=== PATIENT | male | born 1975 | race Caucasian/White ===

== ENCOUNTER 2025-09-01 20:07 | Inpatient (IN) | payer SELFPAY ==
[~2025-09-01] VITALS: Ht 175.3 cm; Wt 114.8 kg
[2025-09-01] MEDS: NALOXONE HCL 1MG/ML 2ML VIAL IV ONE (21:43)
[2025-09-01] MEDS: ONDANSETRON HCL 4MG/2ML INJ IV ONE (21:48)
[2025-09-01] MEDS: FAMOTIDINE 20MG/2ML VIAL IV ONE (21:49)
[2025-09-01 21:58] VITALS: PULSE 115; RESP 36; O2SAT 98
[2025-09-01] MEDS: SODIUM CHLORIDE 0.9% 1,000 ML IV ONE (22:07)
[2025-09-01] MEDS: ETOMIDATE 2MG/ML 10ML VIAL IV ONE (22:38)
[2025-09-01] MEDS: ROCURONIUM BROMIDE 10MG/ML VIAL 5ML IV ONE (22:39)
[2025-09-01 23:05] LABS: BG BASE EXCESS -24.3 mmol/L (-2.0-3.0); BG CARBOXYHEMOGLOBIN 0.2 % (0.5-1.5); BG DEOXYHEMOGLOBIN 0.3 % (0.0-5.0); BG FRACTION INSPIRED OXYGEN 100; BG HCO3 ACT 4.6 mmol/L (21.0-28.0); BG METHEMOGLOBIN 0.6 % (0.5-1.5); BG OXYGEN SATURATION 99.7 % (94.0-98.0); BG OXYHEMOGLOBIN 98.9 % (94.0-98.0); BG PCO2 18.3 mmHg (35.0-48.0); BG PEEP (cmH2O) 5.0 cmH2O; BG PH 7.020 (7.350-7.450); BG PO2 396.6 mmHg (83.0-108.0); BG SAMPLE SITE LEFT RADIAL; BG TIDAL VOLUME(mL) 550.0 mL; BG TOTAL HEMOGLOBIN 21.9 g/dL (13.5-17.5); BG VENT MODE VENT - AC; BG VENT RATE 30.0 set
[2025-09-01] MEDS: PROPOFOL 10MG/ML 100ML 100 ML IV SCH (23:16)
[2025-09-01 23:39] LABS: HEMOGLOBIN. 20.0 g/dL (14.0-18.0); MEAN PLATELET VOLUME 7.9 fl (7.4-10.4); PLATELET 297 x1000/uL (130-400); RED BLOOD CELL COUNT 7.01 mill/uL (4.7-6.1); RED CELL DISTRIBUTION WIDTH 13.9 % (11.6-14.6)
[2025-09-01 23:54] LABS: HEMATOCRIT. 64.5 % (42.0-52.0)
[2025-09-02] VITALS (103 sets, daily range): BP systolic 38–116; BP diastolic 30–80; PULSE 94–124; RESP 18–41; TEMP 36.3–36.6; O2SAT 99–100
[2025-09-02 00:01] LABS: CREATININE 3.8 mg/dL (0.6-1.3); UREA NITROGEN BLOOD 39 mg/dL (9-23)
[2025-09-02 00:02] LABS: ETHANOL BLOOD < 10 mg/dL (<10)
[2025-09-02 00:03] LABS: ASPARTATE AMINOTRANSFERASE 128 IU/L (<34); BILIRUBIN DIRECT 0.2 mg/dL (<=3.0)
[2025-09-02 00:04] LABS: BILIRUBIN TOTAL 0.7 mg/dL (0.1-1.0); PROTEIN TOTAL 5.7 g/dL (6.0-8.3)
[2025-09-02] MEDS ORDERED: GUAIFENESIN 200MG/10ML SUGAR FREE UDC PO PRN (01:00)
[2025-09-02] MEDS ORDERED: CLONIDINE 0.1MG TABLET PO PRN (01:00)
[2025-09-02] MEDS ORDERED: IPRATROPIUM/ALBUTEROL 0.5-3(2.5)MG/3ML NEB HHN PRN (01:00)
[2025-09-02] MEDS ORDERED: MAGNESIUM/ALUMINUM HYDROXIDE/SIMETHICONE 30ML UDC PO PRN (01:00)
[2025-09-02] MEDS ORDERED: DOCUSATE SODIUM 100MG CAPSULE PO PRN (01:00)
[2025-09-02] MEDS ORDERED: NOREPINEPHRINE 32 MG in DEXT 5% WATER 218 ML IV PRN (01:00)
[2025-09-02] MEDS ORDERED: CEFTRIAXONE 1GM/50ML 50 ML IV SCH (01:00)
[2025-09-02] MEDS ORDERED: ACETAMINOPHEN 325MG TABLET PO PRN ×2 (01:00)
[2025-09-02] MEDS ORDERED: LORAZEPAM 2MG/ML UD SYRINGE IV PRN (01:00)
[2025-09-02] MEDS ORDERED: DIPHENHYDRAMINE 50MG/ML VIAL IV PRN (01:00)
[2025-09-02] MEDS ORDERED: ONDANSETRON HCL 4MG/2ML INJ IV PRN (01:00)
[2025-09-02] MEDS: SODIUM CHLORIDE 0.9% (SEPSIS BOLUS) IV ONE (01:30)
[2025-09-02 01:56] LABS: LYMPHOCYTES % MANUAL 12.0 % (20.0-50.0); METAMYELOCYTES % 1.0 % (0-0); MONOCYTES % MANUAL 14.0 % (2.0-8.0); NEUTROPHILS % MANUAL 73.0 % (45.0-75.0); PLATELET ESTIMATE NORMAL
[2025-09-02] MEDS ORDERED: FOLIC ACID 1 MG, THIAMINE HCL 100 MG, MVI, ADULT NO.1 10 ML in DEXTROSE 5% WATER 1,000 ML IV ONE (03:00)
[2025-09-02 03:07] LABS: HEMOGLOBIN. 18.4 g/dL (14.0-18.0); MEAN PLATELET VOLUME 8.2 fl (7.4-10.4); PLATELET 317 x1000/uL (130-400); RED BLOOD CELL COUNT 6.60 mill/uL (4.7-6.1); RED CELL DISTRIBUTION WIDTH 14.2 % (11.6-14.6)
[2025-09-02 03:13] LABS: HEMATOCRIT. 60.6 % (42.0-52.0)
[2025-09-02 03:16] LABS: CREATININE 4.0 mg/dL (0.6-1.3); UREA NITROGEN BLOOD 45 mg/dL (9-23)
[2025-09-02] MEDS ORDERED: NOREPINEPHRINE 8MG/250ML PMX 250 ML IV ONE (03:16)
[2025-09-02] MEDS: SODIUM BICARBONATE 150 MEQ in DEXTROSE 5% WATER 850 ML IV SCH (03:23)
[2025-09-02] MEDS: VANCOMYCIN 2GM PMX (XELLIA) 400 ML IV NR (03:23)
[2025-09-02] MEDS: NOREPINEPHRINE 8MG/250ML PMX 250 ML IV PRN (03:23)
[2025-09-02 03:44] LABS: PHOSPHORUS 13.5 mg/dL (2.5-4.9)
[2025-09-02] MEDS: LACTATED RINGERS 2,000 ML IV ONE (03:45)
[2025-09-02] MEDS: SODIUM BICARBONATE 8.4% 50MEQ/50ML SYR IV NR (04:01)
[2025-09-02] MEDS: CEFTRIAXONE 1GM/50ML 50 ML IV NR (04:02)
[2025-09-02] MEDS: PANTOPRAZOLE SODIUM 40 MG/VIAL IV SCH (04:05)
[2025-09-02] MEDS: PIPERACILLIN/TAZO 3.375G/50ML 50 ML IV SCH (04:05)
[2025-09-02] MEDS: FOLIC ACID 1 MG, THIAMINE HCL 100 MG, MVI, ADULT NO.1 10 ML in DEXTROSE 5% WATER 1,000 ML IV ONE (06:29)
[2025-09-02 06:54] LABS: CREATINE KINASE MB FRACTION 54.7 ng/mL (0.5-3.6)
[2025-09-02] MEDS: PROPOFOL 10MG/ML 100ML 100 ML IV PRN (07:15)
[2025-09-02 09:58] LABS: BG BASE EXCESS -8.6 mmol/L (-2.0-3.0); BG CARBOXYHEMOGLOBIN 0.3 % (0.5-1.5); BG DEOXYHEMOGLOBIN 0.8 % (0.0-5.0); BG FRACTION INSPIRED OXYGEN 40; BG HCO3 ACT 14.1 mmol/L (21.0-28.0); BG METHEMOGLOBIN 0.2 % (0.5-1.5); BG OXYGEN SATURATION 99.2 % (94.0-98.0); BG OXYHEMOGLOBIN 98.7 % (94.0-98.0); BG PCO2 24.7 mmHg (35.0-48.0); BG PEEP (cmH2O) 8.0 cmH2O; BG PH 7.375 (7.350-7.450); BG PO2 155.1 mmHg (83.0-108.0); BG SAMPLE SITE ALINE; BG TIDAL VOLUME(mL) 550.0 mL; BG TOTAL HEMOGLOBIN 18.0 g/dL (13.5-17.5); BG VENT MODE VENT - AC; BG VENT RATE 30.0 set
[2025-09-02] MEDS ORDERED: POLYETHYLENE GLYCOL 3350 (17GM) 1 DOSE PACK PO PRN (11:00)
[2025-09-02] MEDS: CALCIUM ACETATE 667MG CAPSULE PO SCH (11:51)
[2025-09-02] MEDS: FAMOTIDINE 20MG/2ML VIAL IV SCH ×2 (11:51→21:25)
[2025-09-02] MEDS: ENOXAPARIN 40MG/0.4ML SYR SUBCUT SCH (11:51)
[2025-09-02] MEDS: SODIUM BICARBONATE 150 MEQ in DEXT 5%/0.9% NACL 1,000 ML IV SCH (13:01)
[2025-09-02 13:20] LABS: TROPONIN I HIGH SENSITIVITY 717 ng/L (3.0-53)
[2025-09-02 13:30] LABS: *AMPHETAMINES SCREEN URINE PRESUMPTIVE POSITIVE (NEGATIVE); *BARBITURATES SCREEN URINE NEGATIVE (NEGATIVE); *BENZODIAZEPINES SCREEN URINE NEGATIVE (NEGATIVE); *COCAINE SCREEN URINE NEGATIVE (NEGATIVE); CANNABINOID URINE SCREEN NEGATIVE (NEGATIVE); ECSTASY MDMA SCREEN URINE CONF.TEST INDICATED (NEGATIVE); METHADONE URINE SCREEN NEGATIVE (NEGATIVE); OPIATES URINE SCREEN NEGATIVE (NEGATIVE); PHENCYCLIDINE URINE SCREEN NEGATIVE (NEGATIVE)
[2025-09-02 13:58] LABS: CLARITY URINE CLOUDY (CLEAR); COLOR URINE DARK YELLOW (YELLOW); GLUCOSE URINE NEGATIVE (NEGATIVE); KETONES URINE TRACE (NEGATIVE); LEUKOCYTE ESTERASE URINE TRACE (NEGATIVE); NITRITE URINE NEGATIVE (NEGATIVE); OCCULT BLOOD URINE 3+ (NEGATIVE); PH URINE 5.0 (4.5-8.0); PROTEIN URINE 2+ (NEGATIVE); SPECIFIC GRAVITY URINE 1.016 (1.005-1.030); UROBILINOGEN URINE 1.0 E.U./dL (0.2-1.0)
[2025-09-02] MEDS: LACTULOSE 20G/30ML UDC NG SCH (14:04)
[2025-09-02 14:45] LABS: SQUAMOUS EPITHELIAL CELL URINE FEW /lpf (RARE/1+)
[2025-09-02] MEDS ORDERED: FENTANYL CITRATE/PF 1,000 MCG in SODIUM CHLORIDE 0.9% 80 ML IV PRN (14:45)
[2025-09-02 14:46] LABS: BACTERIA URINE 2+
[2025-09-02 14:47] LABS: MUCUS URINE TRACE /lpf (NONE/TRACE); WBC URINE 0-2 /hpf (0-2)
[2025-09-02] MEDS: ENOXAPARIN 80MG/0.8ML SYR SUBCUT SCH (14:47)
[2025-09-02 14:48] LABS: RBC URINE 0-2 /hpf (0-2)
[2025-09-02] MEDS: HYDROCORTISONE SOD SUCCINATE 100 MG/2 ML VIAL IV SCH (14:48)
[2025-09-02 16:55] LABS: INFLUENZA TYPE A Presumptive Negative (Pres. Neg.)
[2025-09-02 16:56] LABS: INFLUENZA TYPE B Presumptive Negative (Pres. Neg.)
[2025-09-02 16:57] LABS: RESPIRATORY SYNCYTIAL VIRUS Not Detected (Not Detectd)
[2025-09-02] MEDS: FENTANYL CITRATE 2,500 MCG in SODIUM CHLORIDE 0.9% 200 ML IV PRN (16:57)
[2025-09-02 17:32] LABS: EOSINOPHILS % MANUAL 1.0 % (0.0-5.0); LYMPHOCYTES % MANUAL 16.0 % (20.0-50.0); METAMYELOCYTES % 1.0 % (0-0); MONOCYTES % MANUAL 5.0 % (2.0-8.0); MYELOCYTES % 1.0 % (0-0); NEUTROPHILS % MANUAL 76.0 % (45.0-75.0); PLATELET ESTIMATE NORMAL
[2025-09-02] MEDS: NOREPINEPHRINE 32 MG in DEXT 5% WATER 218 ML IV PRN (17:52)
[2025-09-02] MEDS ORDERED: PHENYLEPHRINE 50MG/250ML PMX 250 ML IV PRN (18:00)
[2025-09-02] MEDS: CLINDAMYCIN HCL 150MG CAPSULE PO SCH (18:04)
[2025-09-02 18:23] LABS: BASOPHILS % 0.2 % (0.0-2.0); EOSINOPHILS % 0.1 % (0.0-5.0); LYMPHOCYTES % 14.0 % (20.0-50.0); MEAN PLATELET VOLUME 8.8 fl (7.4-10.4); MONOCYTES % 10.9 % (2.0-8.0); NEUTROPHILS % 74.8 % (40.0-76.0); PLATELET 137 x1000/uL (130-400); RED BLOOD CELL COUNT 7.09 mill/uL (4.7-6.1); RED CELL DISTRIBUTION WIDTH 13.6 % (11.6-14.6)
[2025-09-02] MEDS ORDERED: CLINDAMYCIN 600 MG in DEXTROSE 5% WATER 50 ML IV SCH (18:30)
[2025-09-02 18:37] LABS: HEMATOCRIT. 60.9 % (42.0-52.0)
[2025-09-02 18:39] LABS: HEMOGLOBIN. 20.2 g/dL (14.0-18.0)
[2025-09-02 18:45] LABS: TROPONIN I HIGH SENSITIVITY 860 ng/L (3.0-53)
[2025-09-02 19:01] LABS: INR 1.6
[2025-09-02 19:16] LABS: CREATINE KINASE MB FRACTION 142.9 ng/mL (0.5-3.6); HEPATITIS C AB REACTIVE (Pos) (Negative)
[2025-09-02] MEDS: CLINDAMYCIN 600MG PREMIX 50 ML IV SCH (21:25)
[2025-09-02] MEDS: MIDODRINE HCL 5MG TABLET PO PRN (21:41)
[2025-09-02] MEDS: PHENYLEPHRINE 50 MG in DEXTROSE 5% WATER 250 ML IV PRN (21:41)
[2025-09-02] MEDS: PHENYLEPHRINE 100 MG in DEXT 5% WATER 240 ML IV PRN (22:33)
[2025-09-02] MEDS: VASOPRESSIN 20 UNIT in SODIUM CHLORIDE 0.9% 99 ML IV PRN (22:33)
[2025-09-02] MEDS: EPINEPHRINE 10 MG in SODIUM CHLORIDE 0.9% 240 ML IV PRN (22:48)
[2025-09-03] VITALS (32 sets, daily range): BP systolic 135; BP diastolic 68; PULSE 62–120; RESP 30–35; TEMP 32.2–36.1; O2SAT 0–99
[2025-09-03 04:30] LABS: LDL CHOLESTEROL 15 mg/dL (5-100); TRIGLYCERIDE 290 mg/dL (0-150); UREA NITROGEN BLOOD 66 mg/dL (9-23)
[2025-09-03 04:34] LABS: T4 FREE 0.45 ng/dL (0.89-1.76)
[2025-09-03] MEDS: SODIUM BICARBONATE 8.4% 50MEQ/50ML SYR IV NR ×2 (04:38→05:27)
[2025-09-03 04:40] LABS: BG BASE EXCESS -28.0 mmol/L (-2.0-3.0); BG CARBOXYHEMOGLOBIN 0.2 % (0.5-1.5); BG DEOXYHEMOGLOBIN 2.2 % (0.0-5.0); BG FRACTION INSPIRED OXYGEN 40; BG HCO3 ACT 5.0 mmol/L (21.0-28.0); BG METHEMOGLOBIN 0.2 % (0.5-1.5); BG OXYGEN SATURATION 97.8 % (94.0-98.0); BG OXYHEMOGLOBIN 97.4 % (94.0-98.0); BG PCO2 28.0 mmHg (35.0-48.0); BG PEEP (cmH2O) 8.0 cmH2O; BG PH 6.869 (7.350-7.450); BG PO2 138.4 mmHg (83.0-108.0); BG SAMPLE SITE ALINE; BG TIDAL VOLUME(mL) 550.0 mL; BG TOTAL HEMOGLOBIN 16.6 g/dL (13.5-17.5); BG VENT MODE VENT - AC; BG VENT RATE 30.0 set
[2025-09-03 04:55] LABS: CREATININE 6.6 mg/dL (0.6-1.3)
[2025-09-03 04:58] LABS: TROPONIN I HIGH SENSITIVITY 1495 ng/L (3.0-53)
[2025-09-03] MEDS ORDERED: ALBUTEROL (0.083%) 2.5MG/3ML NEB HHN NR (05:00)
[2025-09-03] MEDS: CALCIUM CHLORIDE 1GM/10ML SYR IV NR (05:27)
[2025-09-03] MEDS: DEXTROSE 50% WATER 50ML SYRINGE IV NR (05:27)
[2025-09-03] MEDS: INSULIN REGULAR (HUMULIN R) 1000UNITS/10ML VIAL IV NR (05:28)
[2025-09-03] MEDS: CALCIUM GLUCONATE 100MG/ML 10ML VIAL IV NR (05:33)
[2025-09-03] MEDS: ALBUTEROL (0.5%) 2.5MG/0.5ML NEB HHN NR (05:53)
[2025-09-03] MEDS: DEXTROSE 50% WATER 50ML SYRINGE IV PRN (06:46)
[2025-09-03] MEDS: DOPAMINE 800MG PREMIX (DOUBLE) 250 ML IV PRN (08:21)
[2025-09-03 08:36] LABS: HEMATOCRIT. 34.9 % (42.0-52.0); HEMOGLOBIN. 10.9 g/dL (14.0-18.0); RED BLOOD CELL COUNT 3.67 mill/uL (4.7-6.1); RED CELL DISTRIBUTION WIDTH 14.4 % (11.6-14.6)
[2025-09-03] MEDS: HYDROCORTISONE SOD SUCCINATE 100 MG/2 ML VIAL IV ONE (08:45)
[2025-09-03 08:59] LABS: UREA NITROGEN BLOOD 66 mg/dL (9-23)
[2025-09-03 09:03] LABS: CREATININE 6.9 mg/dL (0.6-1.3)
[2025-09-03 09:21] LABS: BAND% 6.0 % (1.0-6.0); LYMPHOCYTES % MANUAL 28.0 % (20.0-50.0); METAMYELOCYTES % 4.0 % (0-0); MONOCYTES % MANUAL 9.0 % (2.0-8.0); MYELOCYTES % 1.0 % (0-0); NEUTROPHILS % MANUAL 52.0 % (45.0-75.0); NUCLEATED RED BLOOD CELLS 1 /100 WBC
[2025-09-03 09:22] LABS: PLATELET ESTIMATE MARKEDLY DECREASED
[2025-09-03 09:27] LABS: MEAN PLATELET VOLUME 11.4 fl (7.4-10.4); PLATELET 23 x1000/uL (130-400)
[2025-09-03] MEDS ORDERED: INSULIN REGULAR (HUMULIN R) 1000UNITS/10ML VIAL IV NR (09:30)
[2025-09-03] MEDS ORDERED: SODIUM BICARBONATE 8.4% 50MEQ/50ML SYR IV NR (09:30)
[2025-09-03] MEDS ORDERED: DEXTROSE 50% WATER 50ML SYRINGE IV NR (09:30)
[2025-09-03] MEDS ORDERED: CALCIUM GLUCONATE 100MG/ML 10ML VIAL IV NR (09:30)
[2025-09-03 12:08] LABS: HEPATITIS A AB IGM NEGATIVE (Negative)
[2025-09-03 12:09] LABS: HEPATITIS B CORE AB IGM NEGATIVE (Negative); HEPATITIS C AB REACTIVE (Pos) (Negative)
[2025-09-03] MEDS ORDERED: ENOXAPARIN 120MG/0.8ML SYR SUBCUT SCH (18:00)
[2025-09-03] MEDS ORDERED: PIPERACILLIN/TAZO 3.375G/50ML 50 ML IV SCH (21:00)
== END 2025-09-03 09:30 | DRG 720 ==
LOC: ER 20:15 → MICUNO 22:46 → EDBEDREQ 23:14 → EDBEDREQTM 23:14 → EDBEDREQSVC 23:15 → ENRESERV 09-02 00:18
PROVIDERS: ADMIT Internal Medicine; ATTEND Internal Medicine
PROC: 5A1945Z Respiratory Ventilation, 24-96 Consecutive Hours (ICD-10-PCS; principal; 2025-09-01)
PROC: 0BH17EZ Insertion of Endotracheal Airway into Trachea, Via Natural or Artificial Opening (ICD-10-PCS; 2025-09-01)
PROC: 02HV33Z Insertion of Infusion Device into Superior Vena Cava, Percutaneous Approach (ICD-10-PCS; 2025-09-02)
PROC: B548ZZA Ultrasonography of Superior Vena Cava, Guidance (ICD-10-PCS; 2025-09-02)
PROC: 5A12012 Performance of Cardiac Output, Single, Manual (ICD-10-PCS; 2025-09-03)
DX: A41.9 Sepsis, unspecified organism (principal); R65.21 Severe sepsis with septic shock; I33.0 Acute and subacute infective endocarditis; G92.8 Other toxic encephalopathy; J96.01 Acute respiratory failure with hypoxia; R57.1 Hypovolemic shock; D69.6 Thrombocytopenia, unspecified; N17.9 Acute kidney failure, unspecified; L03.116 Cellulitis of left lower limb; B19.20 Unspecified viral hepatitis C without hepatic coma; F15.10 Other stimulant abuse, uncomplicated; I73.9 Peripheral vascular disease, unspecified; M62.82 Rhabdomyolysis; E87.20 Acidosis, unspecified; E86.0 Dehydration; E87.1 Hypo-osmolality and hyponatremia; E72.20 Disorder of urea cycle metabolism, unspecified; L97.929 Non-pressure chronic ulcer of unspecified part of left lower leg with unspecified severity; E83.39 Other disorders of phosphorus metabolism; L97.919 Non-pressure chronic ulcer of unspecified part of right lower leg with unspecified severity; Z79.899 Other long term (current) drug therapy
CPT/HCPCS: 31500; 36415; 36600; 71045; 74018; 76700; 76770; 80048; 80061; 80076; 80202; 80305; 80320; 81003; 82010; 82140; 82375; 82550; 82553; 82728; 82805; 82962; 83540; 83550; 83605; 83735; 83930; 84100; 84145; 84300; 84439; 84443; 84484; 85025; 85379; 86705; 86709; 87070; 87340; 87420; 87426; 87804; 92950; 93005; 93923; 93970; 94002; 94003; 94070; 94640; 94664; 99291; A4606; J0612; J0696; J1265; J1308; J1650; J1720; J1815; J2312; J2371; J2405; J2470; J2543; J2704; J3010; J3373; J3411; J3490; J7030; J7042; J7050; J7060; J7070; G0480